=== PATIENT | male | born 1955 | race African-American/Black ===

== ENCOUNTER 2020-05-07 09:29 | Emergency (ER) | payer OTHER ==
[2020-05-07 09:51] LABS: ABSOLUTE BASOPHILS # (AUTO) 0.1 10^3/uL (0.0-0.2); ABSOLUTE EOSINOPHILS # (AUTO) 0.1 10^3/uL (0.0-0.6); ABSOLUTE LYMPHOCYTES (AUTO) 2.2 10^3/uL (0.5-4.7); ABSOLUTE MONOCYTES (AUTO) 1.3 10^3/uL (0.1-1.4); BASOPHILS % (AUTO) 0.6 % (0-2); EOSINOPHILS % (AUTO) 1.2 % (0-6); HEMATOCRIT 39.1 % (37.9-51.0); HEMOGLOBIN 13.3 g/dL (13.5-17.0); LYMPHOCYTES % (AUTO) 24.9 % (13-45); MEAN CORPUSCULAR HEMOGLOBIN 33.2 pg (27.0-33.4); MEAN CORPUSCULAR HGB CONC 34.1 g/dL (32.0-36.0); MEAN CORPUSCULAR VOLUME 97 fl (80-97); MONOCYTES % (AUTO) 15.2 % (3-13); PLATELET COUNT 163 10^3/uL (150-450); RED BLOOD COUNT 4.01 10^6/uL (4.35-5.55); RED CELL DISTRIBUTION WIDTH 13.4 % (11.5-14.0); SEGMENTED NEUTROPHILS % (AUTO) 58.1 % (42-78); TOTAL CELLS COUNTED % (AUTO) 100 %; WHITE BLOOD COUNT 8.7 10^3/uL (4.0-10.5)
[2020-05-07 10:22] LABS: ALBUMIN 5.5 g/dL (3.5-5.0); ALKALINE PHOSPHATASE 69 U/L (38-126); ANION GAP 19 (5-19); ASPARTATE AMINO TRANSFERASE 23 U/L (17-59); BILIRUBIN,DIRECT 0.6 mg/dL (0.0-0.4); BILIRUBIN,TOTAL 0.7 mg/dL (0.2-1.3); BLOOD UREA NITROGEN 48 mg/dL (7-20); CALCIUM 10.6 mg/dL (8.4-10.2); CARBON DIOXIDE 30 mmol/L (22-30); CHLORIDE 93 mmol/L (98-107); GLUCOSE 120 mg/dL (75-110); POTASSIUM 5.3 mmol/L (3.6-5.0); TOTAL PROTEIN 10.7 g/dL (6.3-8.2)
[2020-05-07] MEDS ORDERED: SODIUM POLYSTYRENE SULFONATE 15 GM/60 ML PO ONE (11:25)
--- NOTE | 2020-05-07 12:33 | ER Document Report ---
Entered by MIA WAY SCRIBE 05/07/20 1124 Acting as scribe for:VICENTE MAJOR MD ED Cardiac - General Chief Complaint: Irregular Pulse Stated Complaint: Low Heart Rate Time Seen by Provider: 05/07/20 11:19 [facility] Care Provider: [facility] [Primary [facility]] - Follow up as needed Information source: Patient Notes: This 64 year old male patient presents to the emergency department today with complaints of bradycardia during dialysis. He reports that he was told that his heart rate dropped to 48 as dialysis was finishing. Patient was asymptomatic the entire time and has no complaints at this time. TRAVEL OUTSIDE OF THE [place] IN LAST 30 DAYS: No - Related Data Allergies/Adverse Reactions: No Known Drug Allergies Allergy (Verified 02/07/14 17:53) Past Medical History - General Information source: Patient - Social History Smoking Status: Unknown if Ever Smoked Cigarette use (# per day): No Chew tobacco use (# tins/day): No Smoking Education Provided: No Frequency of alcohol use: None Drug Abuse: None Lives with: Family, Spouse/Significant other Family History: None, Reviewed & Not Pertinent Patient has homicidal ideation: No - Past Medical History Cardiac Medical History: Reports: Hx Congestive Heart Failure, Hx Coronary Ar lonnie Disease, Hx Heart Attack, Hx Hypertension, Other - Ventricular tachycardia by history, he does have a defibrillator. Endocrine Medical History: Reports: Hx Diabetes Mellitus Type 2 - Borderline Renal/ Medical History: Reports: Hx End Stage Renal Disease Musculoskeletal Medical History: Reports Hx Arthritis, Reports Hx Gout Past Surgical History: Reports: Hx Cardiac Surgery - Defibrillator placed in 2014, has fired one time during the past 5 years., Hx Orthopedic Surgery - Back and left arm - Immunizations Hx Diphtheria, Pertussis, Tetanus Vaccination: Yes Hx Pneumococcal Vaccination: 08/13/11 Review of Systems - Review of Systems Constitutional: No symptoms reported EENT: No symptoms reported Cardiovascular: No symptoms reported Respiratory: No symptoms reported Gastrointestinal: No symptoms reported Genitourinary: No symptoms reported Male Genitourinary: No symptoms reported Musculoskeletal: No symptoms reported Skin: No symptoms reported Hematologic/Lymphatic: No symptoms reported Neurological/Psychological: No symptoms reported -: Yes All other systems reviewed and negative Physical Exam - Vital signs Vitals: Resp 15 05/07/20 09:30 - Notes Notes: Physical Exam: General: Alert, appears well. HEENT: Normocephalic. Atraumatic. PERRL. Extraocular movements intact. Oropharynx clear. Neck: Supple. Non-tender. Respiratory: No respiratory distress. Clear and equal breath sounds bilaterally. Cardiovascular: Irregular, frequent premature beats. Abdominal: Normal Inspection. Non-tender. No distension. Normal Bowel Sounds. Back: No gross abnormalities. Extremities: Moves all four extremities. Upper extremities: Shunt in upper extremity. Normal ROM. Lower extremities: Normal inspection. No edema. Normal ROM. Neurological: Normal cognition. AAOx4. Normal speech. Psychological: Normal affect. Normal Mood. Skin: Warm. Dry. Normal color. Course - Re-evaluation Re-evalutation: 05/07/20 11:31 Patient has frequent PVCs, and discussing this with the patient it seems that the PVCs are a long-term frequent problem that his under presser is well aware o f. His potassium is 5.3, so will give him a dose of Kayexalate. That should keep his potassium low enough until he goes to dialysis again tomorrow. - Vital Signs Vital signs: Temp Pulse Resp BP Pulse Ox 97.8 F 18 141/85 H 100 05/07/20 09:34 05/07/20 10:02 05/07/20 10:02 05/07/20 10:02 - Laboratory Result Diagrams: 05/07/20 09:09 05/07/20 09:09 Laboratory results interpreted by me: 05/07/20 05/07/20 09:09 09:09 RBC 4.01 L Hgb 13.3 L Dukes % (Auto) 15.2 H Potassium 5.3 H Chloride 93 L BUN 48 H Creatinine 11.38 H Est GFR ( Amer) 6 L Est GFR (MDRD) Non-Af 5 L Glucose 120 H Calcium 10.6 H Direct Bilirubin 0.6 H Total Protein 10.7 H Albumin 5.5 H Discharge - Discharge Clinical Impression: Asymptomatic PVCs, Frequent unifocal PVCs, Hyperkalemia Chronic renal failure Qualifiers: Chronic kidney disease stage: stage 5 Qualified Code(s): N18.5 - Chronic kidney disease, stage 5 Condition: Stable Disposition: HOME, SELF-CARE Additional Instructions: Your evaluation today shows that you have frequent PVCs, by the history you provide this is not a new problem. Your heart rate has not been slow since the paramedics picked you up. Your potassium was slightly elevated at 5.3 today. You were given a dose of Kayexalate which should lower your potassium and prevent any problems before you go to dialysis tomorrow. Follow-up with your primary care provider and your under presser if the heart rate and rhythm problems persist. RETURN TO THE EMERGENCY ROOM IF ANY NEW OR WORSENING SYMPTOMS. Referrals: [facility] [Primary Care Provider] - Follow up as needed I personally performed the services described in the documentation, reviewed and edited the documentation which was dictated to the scribe in my presence, and it accurately records my words and actions.
[2020-05-07 13:03] VITALS: BP 154/96
--- NOTE | 2020-05-07 21:35 | EKG REPORT ---
SEVERITY:- ABNORMAL ECG - SINUS RHYTHM VENTRICULAR PREMATURE COMPLEX PROBABLE LEFT ATRIAL ABNORMALITY LEFT AXIS DEVIATION LEFT VENTRICULAR HYPERTROPHY ANTERIOR Q WAVES, POSSIBLY DUE TO LVH : Confirmed by: Roxanne Flores MD 07-May-2020 21:34:02
== END 2020-05-07 13:03 | disposition home or self-care (01) ==
LOC: ER 09:29
DX: I49.3 Ventricular premature depolarization (principal); E87.5 Hyperkalemia; I13.11 Hypertensive heart and chronic kidney disease without heart failure, with stage 5 chronic kidney disease, or end stage renal disease; N18.5 Chronic kidney disease, stage 5; Z99.2 Dependence on renal dialysis; I25.10 Atherosclerotic heart disease of native coronary artery without angina pectoris; I25.2 Old myocardial infarction; Z95.810 Presence of automatic (implantable) cardiac defibrillator
CPT/HCPCS: 36415; 80053; 85025; 93005; 93010; 99284